=== PATIENT | male | born 1975 | race African-American/Black ===

== ENCOUNTER 2016-03-24 12:47 | Emergency (ER) | payer OTHER ==
[~2016-03-24] VITALS: Ht 167.6 cm; Wt 79.4 kg
[~2016-03-24 12:47] MED LIST: ATORVASTATIN CA40 M1 PO; HYDROCODON-ACE1 EAC2 PO; KEFLEX500 M1 PO; METFORMIN HCL500 M3 PO; PERCOCET 325 MG1 TA2 PO; PROAIR HFA8.5 GM INH; PROPRANOLOL HCL20 M1 PO; TAMIFLU 75MG75 MG PO; VALSARTAN160 M1 PO; VIBRAMYCIN100 MG PO; WARFARIN SODIUM5 M1 PO; ZOFRAN ODT4 M1 SL; ZOFRAN4 M1 SL
[2016-03-24 12:50] VITALS: BP 129/81
[2016-03-24] MEDS ORDERED: PERCOCET 5-3251 EACH PO ×2 (13:42→15:56)
[2016-03-24] MEDS ORDERED: CYCLOBENZAPRINE10 M1 PO ×2 (13:43→15:56)
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
[2016-08-27] MEDS ORDERED: MORPHINE SULFAT15 M3 PO (20:56)
[2016-08-27] MEDS ORDERED: XARELTO20 M2 PO (20:56)
[2016-08-27] MEDS ORDERED: PROPRANOLOL HCL20 M1 PO (20:57)
[2016-08-27] MEDS ORDERED: CETIRIZINE HCL10 M2 PO (20:57)
[2016-08-27] MEDS ORDERED: QVAR8.7 G1 INH (20:57)
== END 2016-03-24 14:15 ==
LOC: ERH 12:47
DX: S13.4XXA Sprain of ligaments of cervical spine, initial encounter (principal); V49.40XA Driver injured in collision with unspecified motor vehicles in traffic accident, initial encounter

== ENCOUNTER 2016-07-06 12:10 | Emergency (ER) | payer OTHER ==
[~2016-07-06] VITALS: Ht 167.6 cm; Wt 81.6 kg
[~2016-07-06 12:10] MED LIST changes: +CYCLOBENZAPRINE10 M1 PO; +PERCOCET 5-3251 EACH PO
[2016-07-06 12:13] VITALS: BP 136/96
--- NOTE | 2016-07-06 12:44 | ED UPPER/LOWER EXTREMITY COMPL ---
History of Present Illness General Chief Complaint: Lower Extremity Injury Stated Complaint: RIGHT KNEE PAIN. Source: patient Exam Limitations: no limitations Vital Signs & Intake/Output Vital Signs & Intake/Output Vital Signs Date Time Temp Pulse Resp B/P B/P Pulse O2 O2 Flow FiO2 Mean Ox Delivery Rate 07/06 1213 97.9 97 16 136/96 96 Room Air Allergies Coded Allergies: Penicillins (NAUSEA 03/24/16) hydrocodone (From VICODIN) (SICK TO HIS STOMACH 03/24/16) Reconcile Medications Albuterol Sulfate (Proair Hfa) 8.5 GM HFA.AER.AD 2 PUF INH Q4-6 PRN PRN BREATHING PROBLEMS (Reported) Atorvastatin Calcium 40 MG TABLET 1 TAB PO DAILY CHOLESTEROL (Reported) Cyclobenzaprine HCl 10 MG TABLET 1 TAB PO TID PRN SPASM Doxycycline Hyclate (Vibramycin) 100 MG CAPSULE 1 CAP PO BID BRONCHITIS Ibuprofen 800 MG TABLET 1 TAB PO TID pain Metformin HCl 500 MG TABLET 1 TAB PO BID DIABETES (Reported) Oxycodone HCl/Acetaminophen (Percocet 5-325 MG Tablet) 5 MG-325 MG TABLET 1-2 TAB PO Q6P PRN pain Oxycodone HCl/Acetaminophen (Percocet 5-325 MG Tablet) 5 MG-325 MG TABLET 1 TAB PO TID PRN pain Propranolol HCl 20 MG TABLET 1 TAB PO DAILY HEADACHE (Reported) Valsartan 160 MG TABLET 320 MG PO DAILY BP (Reported) Warfarin Sodium 5 MG TABLET 1 TAB PO 1700 BLOOD THINNER (Reported) Triage Note: 41 Y/O MALE C/O PAIN TO R KNEE S/P "FEELING A POP" WHILE WALKING DOWN STAIRS THIS AM. HX SURGERY ON SAME KNEE. TOOK 800MG IBUPROPHEN APPROX 2 HOURS AGO WITH SOME RELIEF Triage Nurses Notes Reviewed? yes Onset: Abrupt Duration: hour(s):, constant, continues in ED Timing: single episode today Severity: moderate, severe Pain/Injury Location: Right: Knee. No Modifying Factors: none HPI: 41-year-old male with a previous history of ACL tear in his right knee comes into emergency room with acute right knee pain beginning this morning. Patient reports that when he was going down the steps he felt a pop in his right knee. Patient has had swelling and pain to the knee and not able to bear weight. He denies any trauma anywhere else on his body. Denies any other associated symptoms. Past History Travel History Traveled to [place] past 21 day No Medical History Any Pertinent Medical History? 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 No Review of Systems Review of Systems Constitutional: Reports: no symptoms. EENTM: Reports: no symptoms. Respiratory: Reports: no symptoms. Cardiovascular: Reports: no symptoms. Gastrointestinal/Abdominal: Reports: no symptoms. Genitourinary: Reports: no symptoms. Musculoskeletal: Reports: see HPI. Skin: Reports: no symptoms. Neurological/Psychological: Reports: no symptoms. Hematologic/Endocrine: Reports: no symptoms. Immunological: Reports: no symptoms. All Other Systems: Reviewed and Negative Physical Exam Physical Exam General Appearance: well developed/nourished, mild distress Head: atraumatic Eyes: Bilateral: normal appearance, EOMI. Ears, Nose, Throat: normal ENT inspection, hearing grossly normal Neck: normal inspection Cardiovascular/Respiratory: no respiratory distress Back: normal inspection Knee Right: joint effusion, soft tissue tenderness, limited range of motion, exam severely limited secondary to patient's pain Neurologic/Tendon: normal sensation, normal motor functions, normal tendon functions, responds to pain, no evidence tendon injury, no pulse deficit Skin: intact, normal color, warm/dry Lymphatic: no anterior cervical duncan Progress Differential Diagnosis: contusion, dislocation, DVT, fracture, gout, septic arthritis, sprain, tendon injury Plan of Care: Orders Procedure Date/time Status Durable Medical Equipment 07/06 1247 Active Diagnostic Imaging: Viewed by Me: Radiology Read. Discussed w/RAD: Radiology Read. Radiology Impression: SERVICE DATE: 07/06/16-1220 EXAM TYPE: RAD - XRY-KNEE COMPLETE RIGHT EXAMINATION: XR KNEE, RIGHT CLINICAL INFORMATION: Pain. COMPARISON: None TECHNIQUE: Four views of the right knee. FINDINGS: Bone mineral density is maintained without evidence of fracture or dislocation. No focal osseous lesions are seen. There is mild tricompartmental joint space narrowing most notably medially. There is mild soft tissue prominence in the infrapatellar prepatellar region. There are postoperative changes in the tibial tubercle region consistent with previous screw placement and retrieval. There is a small joint effusion suspected. IMPRESSION: Soft tissue prominence and joint effusion with postoperative changes in the tibial tubercle region. 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 Rest. Ibuprofen. Percocet for pain. Follow-up with orthopedic doctor in [place]. Return if any other concerns. Stay nonweightbearing. Please go over all results of today's visit with your primary care doctor. Contact your primary care doctor to let them know you were here in the emergency room. There may be nonspecific findings which may not be related to your visit today here in the emergency room but may require further evaluation and chronic monitoring by your primary care doctor. If you had a laceration today the chance of foreign body always remains. You should follow-up with your primary care doctor for recheck in 3-5 days for a wound check. If you had an x-ray done there is a chance that a fracture could have been missed on initial read and you should follow-up with your primary care doctor for repeat x-rays if symptoms persist. If your blood pressure was elevated here in the emergency room please have rechecked by her primary care doctor within the next 48 hours by your primary care doctor. If you were prescribed a narcotic here in the emergency room or any type of controlled substances you're not allowed to drive while taking this medication or operate any type of heavy machinery. Narcotics can make you feel lightheaded dizziness nausea and can cause constipation. You may need to pick pack worker a stool softener. Thank you for choosing [facility] emergency room. Please return to the emergency room immediately if you have any other concerns worsening of symptoms. Departure Forms: Customer Survey General Discharge Information Prescriptions: Current Visit Scripts Ibuprofen 1 TAB PO TID #20 TAB Oxycodone HCl/Acetaminophen (Percocet 5-325 MG Tablet) 1-2 TAB PO Q6P PRN pain #15 TAB Procedures Splinting Location: right knee pain Manual Alignment Performed: No Pre-Made Type: knee imobilizer Splint Applied By: splint applied by me Pre-Proc Neuro Vasc Exam: normal Post-Proc Neuro Vasc Exam: normal
[2016-07-06] MEDS ORDERED: IBUPROFEN800 M1 PO (12:46)
[2016-07-06] MEDS ORDERED: PERCOCET 5-3251 EACH PO (12:46)
--- NOTE | 2016-07-06 13:09 | RADIOLOGY REPORT ---
EXAMINATION: XR KNEE, RIGHT CLINICAL INFORMATION: Pain. COMPARISON: None TECHNIQUE: Four views of the right knee. FINDINGS: Bone mineral density is maintained without evidence of fracture or dislocation. No focal osseous lesions are seen. There is mild tricompartmental joint space narrowing most notably medially. There is mild soft tissue prominence in the infrapatellar prepatellar region. There are postoperative changes in the tibial tubercle region consistent with previous screw placement and retrieval. There is a small joint effusion suspected. IMPRESSION: Soft tissue prominence and joint effusion with postoperative changes in the tibial tubercle region.
[2016-08-27] MEDS ORDERED: XARELTO20 M2 PO (20:56)
[2016-08-27] MEDS ORDERED: MORPHINE SULFAT15 M3 PO (20:56)
[2016-08-27] MEDS ORDERED: QVAR8.7 G1 INH (20:57)
[2016-08-27] MEDS ORDERED: CETIRIZINE HCL10 M2 PO (20:57)
[2016-08-27] MEDS ORDERED: PROPRANOLOL HCL20 M1 PO (20:57)
== END 2016-07-06 13:41 ==
LOC: ERH 12:10
DX: S83.91XA Sprain of unspecified site of right knee, initial encounter (principal); X58.XXXA Exposure to other specified factors, initial encounter
CPT/HCPCS: 73562-RT

== ENCOUNTER 2017-05-01 12:07 | Emergency (ER) | payer OTHER ==
[~2017-05-01] VITALS: Ht 167.6 cm; Wt 68.0 kg
[~2017-05-01 12:07] MED LIST changes: +CETIRIZINE HCL10 M2 PO; +IBUPROFEN800 M1 PO; +MORPHINE SULFAT15 M3 PO; +QVAR8.7 G1 INH; +XARELTO20 M2 PO
[2017-05-01 12:15] VITALS: BP 144/93
[2017-05-01] MEDS ORDERED: VALIUM2 M1 PO (12:22)
[2017-05-01] MEDS ORDERED: PERCOCET 5-3251 EACH PO (12:22)
[2017-05-01] MEDS ORDERED: MEDROL4 M2 PO (12:22)
--- NOTE | 2017-05-01 12:23 | ED NECK/BACK PAIN COMPLAINT ---
History of Present Illness General Chief Complaint: Low Back Pain/Injury Stated Complaint: LEFT LOWER BACK PAIN SHOOTING DOWN LEG AND FOOT Source: patient, old records Exam Limitations: no limitations Vital Signs & Intake/Output Vital Signs & Intake/Output Vital Signs Date Time Temp Pulse Resp B/P B/P Pulse O2 O2 Flow FiO2 Mean Ox Delivery Rate 05/01 1215 98.0 84 18 144/93 99 Room Air Allergies Coded Allergies: Penicillins (NAUSEA 03/24/16) hydrocodone (From VICODIN) (SICK TO HIS STOMACH 03/24/16) Reconcile Medications Albuterol Sulfate (Proair Hfa) 8.5 GM HFA.AER.AD 2 PUF INH Q4-6 PRN PRN BREATHING PROBLEMS (Reported) Beclomethasone Dipropionate (QVAR) 80 MCG AER.W.ADAP 2 PUF INH BID ASTHMA ( Reported) Cetirizine HCl 10 MG TABLET 1 TAB PO DAILY ALLERGIES (Reported) Cyclobenzaprine HCl 10 MG TABLET 1 TAB PO TID PRN SPASM Diazepam (Valium) 2 MG TABLET 1 TAB PO BID PRN PAIN Metformin HCl 500 MG TABLET 1 TAB PO BID DIABETES (Reported) Methylprednisolone. (Medrol) 4 MG TAB.DS.PK 1 DP PO AD RADICULOPATHY 6 on day 1 then reduce by one tablet daily until gone Morphine Sulfate (Morphine Sulfate ER) 15 MG TABLET.ER 1 TAB PO Q12H PAIN ( Reported) Oxycodone HCl/Acetaminophen (Percocet 5-325 MG Tablet) 5 MG-325 MG TABLET 1 TAB PO BID PRN PAIN Propranolol HCl 20 MG TABLET 1 TAB PO PRN YOUSSEF (Reported) Rivaroxaban (Xarelto) 20 MG TABLET 1 TAB PO DAILY BLOOD THINNER (Reported) with food Valsartan 160 MG TABLET 320 MG PO DAILY BP (Reported) Triage Note: PT TO ED REPORTING SHOOTING PAIN FROM HIS L SHOULDER ALL THE WAY TO HIS LEFT FOOT, HX OF HERNIATED DISK "FLARED UP 3-4 WEEKS AGO." DENIES LOSS OF B/B. Triage Nurses Notes Reviewed? yes Onset: Abrupt Duration: day(s): (2), constant Timing: recent history Quality/Severity: moderate Location: lumbar spine, paraspinous muscles Radiation: buttocks, upper legs Method of Injury: unknown Loss of Consciousness: no loss of consciousness Associated Symptoms: DENIES HPI: 42-year-old male with history of herniated disc in his back visiting from [place] presents complaining of 2 day history of bilateral lower back pain worse the left side read on his left leg he states this feels similar to his previous herniated disc however is never had the pain radiate down his leg. He was recently in the hospital a few months ago for the same and was given shots medication with improvement and was sent home with Valium and Percocet with improvement. Denies recent new injury or trauma no fall. No urinary bowel incontinence of fever no chills no abdominal pain nausea vomiting diarrhea. He is not taken anything for symptoms (Krishna Bunch) Past History Travel History Traveled to [facility] past 21 day No Medical History Any Pertinent Medical History? 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 No (Krishna Bucnh) Review of Systems Review of Systems Constitutional: Reports: see HPI. Comments Review of systems: See HPI, All other systems negative. Constitutional, no chills no fever, HEENT: no sore throat no congestion Cardiovascular: No chest pain Skin: no rashes, no change in skin RESP:no dyspnea GI: No nausea no vomiting, : No dysuria No hematuria, no frequency Muscle skeletal: No joint pain, back pain, no neck pain, Neurologic: , no headache Heme/endocrine: No bruising Immunology: No lymphadenopathy (Krishna Bunch) Physical Exam Physical Exam General Appearance: well developed/nourished, no apparent distress, alert Neck: normal inspection, supple, full range of motion Comments: Well-developed well-nourished patient in no apparent distress. HEENT: ATRAUMATIC Neck: Supple, FROM Back: FROM B/L PARALUMBAR MUSCLE TENDERNESS, NO CVA TENDNERESS, NO ECCHYMOSIS Cardiovascular: Regular rate and rhythms no murmurs rubs or gallops, Respiratory: . No respiratory distress. Patient speaking in full complete sentences. Breath sounds clear to auscultation bilaterally: NO W/R/R Extremities: POSITIVE SLR B/L, 5/5 STRENGTH B/L NORMAL SENSATION, PATELLA REFLEX WNL B/L, full range of motion Neuro: awake, alert, and oriented to person, place and time. There were no obvious focal neurologic abnormalities. Skin: Warm & dry;No appreciable rash on exposed skin Psych: Mood affect normal, normal memory normal judgment. Core Measures CVA/TIA Diagnosis: No (Krishna Bunch) Progress Differential Diagnosis: cauda equina syn, herniated disc, myofascial strain, pyelo/UTI, sciatica, spinal cord inj, T/L spine injury, ureterolithiasis Plan of Care: Current Medications Sig/Zhane Start time Last Medication Dose Stop Time Status Admin Diazepam 5 MG ONCE ONE 05/01 1229 UNVr (Valium) 05/01 123 Patient clinically looks well. Patient has no evidence of radiculopathy. No urinary bowel dysfunction. No numbness in the genital area. Strength intact. Gross sensation intact. Patient resting comfortably and in no apparent distress. Pain is worse with range of motion. Pain is reproducible IN back with no bruising or ecchymosis noted. . Patient is to follow-up with primary care doctor. May need MRI of the lower back at some point time. No concerns for cauda equina at this point time. I considered this diagnosis but patient does not have any symptoms consistent with cauda equina. Patient has no secondary causes of back pain. No cardiac, pulmonary, or abdominal complaints. No abdominal pain on exam. Cardiac pulmonary exam within normal limits. No rashes, afebrile, denies recent weight loss, dizziness, lightheadedness (Krishna Bunch) Departure Departure Time of Disposition: 1220 Disposition: HOME OR SELF CARE Condition: Stable Clinical Impression Primary Impression: Lumbar radiculopathy Referrals: Patient Has No Primary Care Dr (PCP/Family) Additional Instructions: FOLLOW UP WITH YOUR PMD WHEN YOU RETURN HOME. PERCOCET AND VALIUM DIRECTED- USE CAUTION THESE MEDICATIONS ARE HIGHLY ADDICTIVE AND CAN MAKE YOU DROWSY. NO DRIVING OR DRINKING ALCOHOL WHILE TAKING. MEDROL DOSE ROSALINA DIRECTED. RETURN WITH ANY CONCERNS Departure Forms: Customer Survey General Discharge Information Prescriptions: Current Visit Scripts Methylprednisolone. (Medrol) 1 DP PO AD #1 DP 6 on day 1 then reduce by one tablet daily until gone Oxycodone HCl/Acetaminophen (Percocet 5-325 MG Tablet) 1 TAB PO BID PRN PAIN #10 TAB Diazepam (Valium) 1 TAB PO BID PRN PAIN #10 TAB (Krishna Bunch) PA/HEALTHCARE RECRUITER Co-Sign Statement Statement: ED Attending supervision documentation- [] I saw and evaluated the patient. I have also reviewed all the pertinent lab results and diagnostic results. I agree with the findings and the plan of care as documented in the PA's/HEALTHCARE RECRUITER's documentation. [X] I have reviewed the ED Record and agree with the PA's/HEALTHCARE RECRUITER's documentation. [] Additions or exceptions (if any) to the PAs/HEALTHCARE RECRUITER's note and plan are summarized below: [] (Mahsa SCOTT,Anand Hamilton)
== END 2017-05-01 12:40 ==
LOC: ERH 12:07
DX: M54.16 Radiculopathy, lumbar region (principal)
CPT/HCPCS: 96372; J1885

== ENCOUNTER 2017-05-04 21:01 | Emergency (ER) | payer OTHER ==
[~2017-05-04 21:01] MED LIST changes: +MEDROL4 M2 PO; +VALIUM2 M1 PO
[2017-05-04 21:09] VITALS: BP 138/88
[2017-05-04] MEDS ORDERED: DILAUDID2 M1 PO (21:32)
[2017-05-04] MEDS ORDERED: VALIUM2 M1 PO (21:32)
--- NOTE | 2017-05-04 21:36 | ED NECK/BACK PAIN COMPLAINT ---
History of Present Illness General Chief Complaint: Low Back Pain/Injury Stated Complaint: LOWER BACK PAIN Source: patient, friend Exam Limitations: no limitations Vital Signs & Intake/Output Vital Signs & Intake/Output Vital Signs Date Time Temp Pulse Resp B/P B/P Pulse O2 O2 Flow FiO2 Mean Ox Delivery Rate 05/04 2132 Room Air 05/04 2108 84 20 138/88 97 ED Intake and Output 05/05 0000 05/04 1200 Intake Total 0 Output Total Balance 0 Intake, Oral 0 Allergies Coded Allergies: Penicillins (NAUSEA 03/24/16) hydrocodone (From VICODIN) (SICK TO HIS STOMACH 03/24/16) Reconcile Medications Albuterol Sulfate (Proair Hfa) 8.5 GM HFA.AER.AD 2 PUF INH Q4-6 PRN PRN BREATHING PROBLEMS (Reported) Beclomethasone Dipropionate (QVAR) 80 MCG AER.W.ADAP 2 PUF INH BID ASTHMA ( Reported) Cetirizine HCl 10 MG TABLET 1 TAB PO DAILY ALLERGIES (Reported) Cyclobenzaprine HCl 10 MG TABLET 1 TAB PO TID PRN SPASM Diazepam (Valium) 2 MG TABLET 1 TAB PO BID PRN PAIN Diazepam (Valium) 2 MG TABLET 1 TAB PO BID PRN pain Hydromorphone HCl (Dilaudid) 2 MG TABLET 1 TAB PO BIDP PRN pain Metformin HCl 500 MG TABLET 1 TAB PO BID DIABETES (Reported) Methylprednisolone. (Medrol) 4 MG TAB.DS.PK 1 DP PO AD RADICULOPATHY 6 on day 1 then reduce by one tablet daily until gone Morphine Sulfate (Morphine Sulfate ER) 15 MG TABLET.ER 1 TAB PO Q12H PAIN ( Reported) Oxycodone HCl/Acetaminophen (Percocet 5-325 MG Tablet) 5 MG-325 MG TABLET 1 TAB PO BID PRN PAIN Propranolol HCl 20 MG TABLET 1 TAB PO PRN YOUSSEF (Reported) Rivaroxaban (Xarelto) 20 MG TABLET 1 TAB PO DAILY BLOOD THINNER (Reported) with food Valsartan 160 MG TABLET 320 MG PO DAILY BP (Reported) Triage Note: PER PT SEEN THE OTHER DAY FOR HERNIATED DISC, SENT HOME WITH STEROIDS AND VALIUM, CANT TAKE THE PAIN, UNABLE TO GET COMF Triage Nurses Notes Reviewed? yes Onset: Abrupt Duration: day(s): (1), constant Timing: recent history Quality/Severity: moderate, severe Location: paraspinous muscles, aching Radiation: buttocks, upper legs Loss of Consciousness: no loss of consciousness Modifying Factors: movement, pain medication, rest Associated Symptoms: denies HPI: 42-year-old Male presents to emergency room after being seen here 3 days ago by myself with history of herniated disks in his back currently visiting from [place]. Patient states that after being seen here he was feeling improved however walking up the stairs this evening he states he really injured his back. The pain is not radiating down both legs. No urinary or bowel incontinence. Patient states that he ran out of Valium and Percocet he is currently taking the prednisone still. No fall or other injury. No fever chills no abdominal pain nausea vomiting diarrhea He does report the pain medication the Valium and Percocet he is prescribed the other day did help (Krishna Bunch) Past History Travel History Traveled to [place] past 21 day No Medical History Any Pertinent Medical History? 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 No (Krishna Bunch) Review of Systems Review of Systems Constitutional: Reports: see HPI. Comments Review of systems: See HPI, All other systems negative. Constitutional, no chills no fever, HEENT: no sore throat no congestion Cardiovascular: No chest pain , Skin: no rashes, no change in skin Respiratory: No dyspnea no cough no sputum GI: No nausea no vomiting, no diarrhea, : No dysuria No hematuria, no frequency Muscle skeletal: No joint pain, back pain, no neck pain, Neurologic: , no headache Heme/endocrine: No bruising (Krishna Bunch) Physical Exam Physical Exam General Appearance: well developed/nourished, no apparent distress Neck: normal inspection, supple Comments: Well-developed well-nourished patient in no apparent distress. HEENT: ATRAUMATIC Neck: Supple, FROM Back: FROM B/L PARALUMBAR MUSCLE TENDERNESS, NO CVA TENDNERESS, NO ECCHYMOSIS Cardiovascular: Regular rate and rhythms no murmurs rubs or gallops, Respiratory: . No respiratory distress. Patient speaking in full complete sentences. Breath sounds clear to auscultation bilaterally: NO W/R/R Extremities: POSITIVE SLR B/L, 5/5 STRENGTH B/L NORMAL SENSATION, PATELLA REFLEX WNL B/L, full range of motion Neuro: awake, alert, and oriented to person, place and time. There were no obvious focal neurologic abnormalities. Skin: Warm & dry;No appreciable rash on exposed skin Psych: Mood affect normal, normal memory normal judgment. Core Measures CVA/TIA Diagnosis: No (Krishna Bunch) Progress Differential Diagnosis: cauda equina syn, herniated disc, myofascial strain, pyelo/UTI, sciatica, spinal cord inj, T/L spine injury, ureterolithiasis Plan of Care: I discussed with the patient plan of care I had an extensive conversation regarding need for close follow up with their primary care physician this week as well as return precautions. Patient was recently seen for the same I do not believe he requires any imaging is no recent trauma no urinary or bowel incontinence no saddle anesthesia. I answered all of their questions, they feel comfortable with the plan and follow-up care. I discussed with the patient/family the medications that they will receive. I gave them signs and symptoms that could indicate an adverse reaction. I have advised them to limit their activities until they can see how they respond to the medication. (Krishna Bunch) Departure Departure Time of Disposition: 2129 Disposition: HOME OR SELF CARE Condition: Stable Clinical Impression Primary Impression: Lumbar strain Qualifiers: Encounter type: subsequent encounter Qualified Code: S39.012D - Strain of muscle, fascia and tendon of lower back, subsequent encounter Referrals: Brooks Borden MD Patient Has No Primary Care Dr (PCP/Family) Additional Instructions: Follow up with spine surgeon Dr. Borden if symptoms persist and you are still in the area, as well as your primary care physician when you return home. Finish the Medrol Dosepak as prescribed Valium and Dilaudid as discussed. Use caution as both of these medications are highly addictive. No driving or drinking alcohol while taking Departure Forms: Customer Survey General Discharge Information Prescriptions: Current Visit Scripts Hydromorphone HCl (Dilaudid) 1 TAB PO BIDP PRN pain #10 TAB Diazepam (Valium) 1 TAB PO BID PRN pain #10 TAB (Krishna Bunch) PA/SWEATBAND DRUMMER Co-Sign Statement Statement: ED Attending supervision documentation- [] I saw and evaluated the patient. I have also reviewed all the pertinent lab results and diagnostic results. I agree with the findings and the plan of care as documented in the PA's/SWEATBAND DRUMMER's documentation. [x] I have reviewed the ED Record and agree with the PA's/SWEATBAND DRUMMER's documentation. [] Additions or exceptions (if any) to the PAs/SWEATBAND DRUMMER's note and plan are summarized below: [] (Naomi SCOTT,Santosh Escamilla)
== END 2017-05-04 21:50 ==
LOC: ERH 21:01
DX: S39.012A Strain of muscle, fascia and tendon of lower back, initial encounter (principal); X58.XXXA Exposure to other specified factors, initial encounter; Y93.01 Activity, walking, marching and hiking; Y92.9 Unspecified place or not applicable
CPT/HCPCS: 96372

== ENCOUNTER 2017-09-09 15:03 | Emergency (ER) | payer OTHER ==
[~2017-09-09] VITALS: Ht 167.6 cm; Wt 82.6 kg
[~2017-09-09 15:03] MED LIST changes: +DILAUDID2 M1 PO
[2017-09-09 15:14] VITALS: BP 112/80
--- NOTE | 2017-09-09 16:44 | ED GENERAL ADULT ---
History of Present Illness General Chief Complaint: Lower Extremity Problems Stated Complaint: PAIN RADIATING DOWN LEFT LEG. Source: patient Exam Limitations: no limitations Vital Signs & Intake/Output Vital Signs & Intake/Output Vital Signs Date Time Temp Pulse Resp B/P B/P Pulse O2 O2 Flow FiO2 Mean Ox Delivery Rate 09/09 1514 96.6 70 20 112/80 96 Room Air Allergies Coded Allergies: Penicillins (NAUSEA 03/24/16) hydrocodone (From VICODIN) (SICK TO HIS STOMACH 03/24/16) Reconcile Medications Albuterol Sulfate (Proair Hfa) 8.5 GM HFA.AER.AD 2 PUF INH Q4-6 PRN PRN BREATHING PROBLEMS (Reported) Beclomethasone Dipropionate (QVAR) 80 MCG AER.W.ADAP 2 PUF INH BID ASTHMA ( Reported) Cetirizine HCl 10 MG TABLET 1 TAB PO DAILY ALLERGIES (Reported) Cyclobenzaprine HCl 10 MG TABLET 1 TAB PO QPM PRN pain Cyclobenzaprine HCl 10 MG TABLET 1 TAB PO TID PRN SPASM Diazepam (Valium) 2 MG TABLET 1 TAB PO BID PRN PAIN Diazepam (Valium) 2 MG TABLET 1 TAB PO BID PRN pain Diclofenac Sodium (Voltaren) 1 % GEL..GRAM. 1 GM TOP 4 TIMES/DAY PRN pain apply to affected area(s) Hydromorphone HCl (Dilaudid) 2 MG TABLET 1 TAB PO BIDP PRN pain Lidocaine (Lidoderm) 5 % ADH..PATCH 1 PAT TOP DAILY PRN pain may wear up to 12 hours Metformin HCl 500 MG TABLET 1 TAB PO BID DIABETES (Reported) Methylprednisolone. (Medrol) 4 MG TAB.DS.PK 1 DP PO AD RADICULOPATHY 6 on day 1 then reduce by one tablet daily until gone Morphine Sulfate (Morphine Sulfate ER) 15 MG TABLET.ER 1 TAB PO Q12H PAIN ( Reported) Naproxen (Naprosyn) 500 MG TABLET 1 TAB PO BID PRN pain Oxycodone HCl/Acetaminophen (Percocet 5-325 MG Tablet) 5 MG-325 MG TABLET 1 TAB PO BID PRN PAIN Propranolol HCl 20 MG TABLET 1 TAB PO PRN YOUSSEF (Reported) Rivaroxaban (Xarelto) 20 MG TABLET 1 TAB PO DAILY BLOOD THINNER (Reported) with food Valsartan 160 MG TABLET 320 MG PO DAILY BP (Reported) Triage Note: PT TO ED C/O PAIN TO BACK OF LEFT LEG SINCE THIS AM. H/O SCIATICA. Triage Nurses Notes Reviewed? yes Onset: Gradual Duration: hour(s): Timing: constant HPI: 42 y/o male with h/o HTN, asthma, anxiety, diabetes, DVT, and sciatica presenting with left lower back pain radiating to his left leg since this morning. Pain is worse with movement. Also endorses paresthesias to the left leg. States he has had sciatica in the past and this feels like his usual sciatica. In the past has come to the ER and gotten good relief from IM toraol and IM solumedrol. Denies fevers, IVDU, saddle anesthesia, urinary/bowel incontinence/retention. (Kira Bean) Past History Travel History Traveled to [place] past 21 day No Medical History Any Pertinent Medical History? 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 No (Kira Bean) Review of Systems Review of Systems Constitutional: Reports: no symptoms. EENTM: Reports: no symptoms. Respiratory: Reports: no symptoms. Cardiovascular: Reports: no symptoms. GI: Reports: no symptoms. Genitourinary: Reports: no symptoms. Musculoskeletal: Reports: see HPI. Skin: Reports: no symptoms. Neurological/Psychological: Reports: no symptoms. Hematologic/Endocrine: Reports: no symptoms. Immunologic/Allergic: Reports: no symptoms. (Kira Bean) Physical Exam Physical Exam General Appearance: well developed/nourished, no apparent distress, alert, awake , comfortable Head: atraumatic, normal appearance Eyes: Bilateral: normal appearance. Neck: normal inspection, full range of motion, no midline tenderness Respiratory: normal breath sounds, lungs clear Cardiovascular: regular rate/rhythm Gastrointestinal: soft, non-tender Back: normal inspection, normal range of motion, no vertebral tenderness, +TTP to left lower lumbar muscles, +straight leg raise on the left side, LLE is NV intact. Pt is able to bear weight and ambulate with a steady gait. Extremities: normal inspection Neurologic/Psych: awake, alert, oriented x 3, normal gait, normal mood/affect Skin: intact, normal color, warm/dry Core Measures ACS in differential dx? No CVA/TIA Diagnosis: No Sepsis Present: No Sepsis Focused Exam Completed? No (Kira Bean) Progress Differential Diagnoses I considered the following diagnoses in my evaluation of the patient: [MSK strain vs sciatica vs disc herniation, low concern for cauda equina vs epidural abscess ] Plan of Care: Current Medications Sig/Zhane Start time Last Medication Dose Stop Time Status Admin Ketorolac 60 MG ONCE ONE 09/09 1699 AC Tromethamine 09/09 1700 (Toradol) Methylprednisolone 125 MG ONCE ONE 09/09 1699 AC (Solu Medrol) 09/09 1700 Given IM toradol and IM solumedrol. Given rx naproxen, flexeril, lidoderm patches, and voltaren gel. Counseled on supportive care and strict return precautions. Initial ED EKG: none (Kira Bean) Departure Departure Disposition: HOME OR SELF CARE Condition: Stable Clinical Impression Primary Impression: Sciatica Referrals: Patient Has No Primary Care Dr (PCP/Family) Additional Instructions: Use naproxen, flexeril, lidoderm patches, and voltaren gel as prescribed. Follow up with your primary care provider for re-evaluation. Return to the emergency department for any new or worsening symptoms. Departure Forms: Customer Survey General Discharge Information Prescriptions: Current Visit Scripts Lidocaine (Lidoderm) 1 PAT TOP DAILY PRN pain #30 PAT may wear up to 12 hours Naproxen (Naprosyn) 1 TAB PO BID PRN pain #60 TAB Diclofenac Sodium (Voltaren) 1 GM TOP 4 TIMES/DAY PRN pain #1 TUBE apply to affected area(s) Cyclobenzaprine HCl 1 TAB PO QPM PRN pain #30 TAB (Kira Bean) PA/REGULATORY AFFAIRS ASSOCIATE Co-Sign Statement Statement: ED Attending supervision documentation- I saw and evaluated the patient. I have also reviewed all the pertinent lab results and diagnostic results. I agree with the findings and the plan of care as documented in the PA's/REGULATORY AFFAIRS ASSOCIATE's documentation. x I have reviewed the ED Record and agree with the PA's/REGULATORY AFFAIRS ASSOCIATE's documentation. [] Additions or exceptions (if any) to the PAs/REGULATORY AFFAIRS ASSOCIATE's note and plan are summarized below: [] (Sloan SCOTT,Ben) Critical Care Note Critical Care Note Critical Care Time: non-applicable (Kira Bean)
[2017-09-09] MEDS ORDERED: LIDODERM1 EACH TOP (16:56)
[2017-09-09] MEDS ORDERED: CYCLOBENZAPRINE10 M1 PO (16:56)
[2017-09-09] MEDS ORDERED: VOLTAREN100 GM TOP (16:56)
[2017-09-09] MEDS ORDERED: NAPROSYN500 M1 PO (16:56)
[2017-09-12] MEDS ORDERED: MEDROL4 M2 PO (18:50)
[2017-09-12] MEDS ORDERED: PERCOCET 5-3251 EACH PO (18:50)
== END 2017-09-09 17:08 ==
LOC: ERH 15:03
DX: M54.42 Lumbago with sciatica, left side (principal)
CPT/HCPCS: 96372; J1885; J2930